=== PATIENT | female | born 1995 ===

== ENCOUNTER 2023-11-09 21:43 | Outpatient (CLI) | payer BC, SELFPAY ==
[2023-11-09 21:35] VITALS: BMI 29.2
[2023-11-09 21:51] VITALS: BP 123/69; PULSE 103
[2023-11-09 22:09] VITALS: BP 118/64; PULSE 103
== END 2023-11-09 22:25 | disposition home or self-care (01) ==
LOC: OPOB 21:45 → OBGYN 21:45
PROVIDERS: Visit Provider Obstetrics & Gynecology
DX: O26.899 Other specified pregnancy related conditions, unspecified trimester (principal); Z3A.00 Weeks of gestation of pregnancy not specified; Z91.81 History of falling
CPT/HCPCS: 59025; 99211